=== PATIENT | male | born 1995 | race Caucasian/White ===

== ENCOUNTER → 2018-02-16 | Outpatient (CLI) | payer MEDICARE, MEDICAID | LOC: COL.RAD 02-14 09:45 | DX: R16.1 Splenomegaly, not elsewhere classified (principal); D72.819 Decreased white blood cell count, unspecified ==

== ENCOUNTER 2019-05-24 14:31 | Emergency (ER) | payer MEDICARE, MEDICAID ==
[~2019-05-24] VITALS: Ht 185.4 cm; Wt 81.8 kg
[2019-05-24 15:17] VITALS: TEMP 98
[2019-05-24 18:27] LABS: BASO # 0.1 (0.0-0.2); BASO % 0.9 % (0.0-2.0); EOS # 0.4 (0.0-0.7); EOS % 6.5 % (0-4.0); GRAN # 4.3 (1.4-6.5); GRAN % 65.8 % (42.2-75.2); HEMATOCRIT 50.4 % (42.0-52.0); LYMPH # 1.4 (1.2-3.4); LYMPH % 21.3 % (20.0-51.0); MEAN CELL VOLUME 94 fl (80.0-100.0); MEAN CORPUSCULAR HEMOGLOBIN 32 pg (27.0-31.0); MEAN CORPUSCULAR HGB CONC 34 g/dl (33.0-37.0); MEAN PLATELET VOLUME 8.7 fl (7.4-10.4); MONO # 0.4 (0.1-0.6); MONO % 5.3 % (1.7-9.3); PLATELET COUNT 225 K/mm3 (130-400); RED BLOOD COUNT 5.39 M/mm3 (4.20-5.60); REDCELL DISTRIBUTION WIDTH-CV 13.2 % (11.5-14.5)
[2019-05-24 18:32] LABS: ALBUMIN 4.5 gm/dL (3.5-5.0); BILIRUBIN,TOTAL 0.5 mg/dL (0.0-1.0); CALCIUM 9.7 mg/dL (8.4-10.2); CREATININE, serum 0.85 (0.66-1.25); TOTAL PROTEIN 7.2 gm/dL (6.4-8.2)
[2019-05-24 18:40] LABS: COLLECTION METHOD CLEAN CATCH
[2019-05-24 18:53] LABS: MUCOUS Present /lpf; PH 7 (5-8); SQUAMOUS EPITHELIAL None Seen /hpf; URINE APPEARANCE Clear; URINE BACTERIA Rare /hpf; URINE BILIRUBIN Negative (NEGATIVE); URINE BLOOD 1+ (NEGATIVE); URINE COLOR Yellow; URINE GLUCOSE Negative (NEGATIVE); URINE KETONE Negative (NEGATIVE); URINE LEUKOCYTE ESTERASE Negative (NEGATIVE); URINE NITRATE Negative (NEGATIVE); URINE PROTEIN(semi-quant) Negative (NEGATIVE); URINE RBC 0-2 /hpf; URINE UROBILINOGEN Negative (NEGATIVE)
[2019-05-24 19:03] VITALS: BP 126/82; PULSE 87
== END 2019-05-24 19:03 | disposition home or self-care (01) ==
LOC: COL.ER 14:31
PROVIDERS: Emergency Medicine
DX: G93.89 Other specified disorders of brain (principal); R93.5 Abnormal findings on diagnostic imaging of other abdominal regions, including retroperitoneum; G40.909 Epilepsy, unspecified, not intractable, without status epilepticus

== ENCOUNTER → 2019-05-24 | Outpatient (CLI) | payer MEDICARE, MEDICAID | LOC: COL.RAD 14:14 | DX: G40.109 Localization-related (focal) (partial) symptomatic epilepsy and epileptic syndromes with simple partial seizures, not intractable, without status epilepticus (principal); R93.0 Abnormal findings on diagnostic imaging of skull and head, not elsewhere classified; Z98.1 Arthrodesis status ==

== ENCOUNTER 2021-10-27 16:29 | Inpatient (IN) | payer MEDICARE, MEDICAID ==
[~2021-10-27] VITALS: Ht 175.3 cm; Wt 68.2 kg
[2021-10-27 16:49] LABS: BASO % 0.3 % (0.0-2.0); EOS % 0.2 % (0.0-4.0); GRAN # 4.1 K/mm3 (1.4-6.5); GRAN % 67.7 % (42.2-75.2); HEMOGLOBIN 12.4 g/dl (13.5-18.0); LYMPH # 1.3 K/mm3 (1.2-3.4); LYMPH % 22.1 % (20.0-51.0); MEAN CELL VOLUME 94 fl (80.0-100.0); MEAN CORPUSCULAR HEMOGLOBIN 32 pg (27-31); MEAN CORPUSCULAR HGB CONC 34 g/dl (33.0-37.0); MEAN PLATELET VOLUME 9.2 fl (7.4-10.4); MONO # 0.6 K/mm3 (0.1-0.6); MONO % 9.5 % (1.7-9.3); PLATELET COUNT 147 K/mm3 (130-400); RED BLOOD COUNT 3.83 M/mm3 (4.20-5.60); REDCELL DISTRIBUTION WIDTH-CV 12.9 % (11.5-14.5)
[2021-10-27 16:55] LABS: INR 1.5 (0.8-3.0); PROTHROMBIN TIME 16.3 SECONDS (9.7-12.8)
[2021-10-27 17:07] LABS: ALANINE AMINOTRANSFERASE 41 U/L (0-55); ALBUMIN 3.3 gm/dL (3.5-5.0); ALKALINE PHOSPHATASE 113 U/L (40-150); ANION GAP 10 mmol/L (7-16); BILIRUBIN,TOTAL 0.5 mg/dL (0.2-1.2); BLOOD UREA NITROGEN 28 mg/dL (9-21); CALCIUM 8.1 mg/dL (8.4-10.2); CARBON DIOXIDE 27 mmol/L (22-29); CHLORIDE 105 mmol/L (98-107); CREATININE, serum 0.88 mg/dL (0.72-1.25); GLUCOSE 86 mg/dL (70-99); LIPASE 11 U/L (8-78); POTASSIUM 4.3 mmol/L (3.5-4.5); SODIUM 142 mmol/L (136-145); TOTAL PROTEIN 5.2 gm/dL (6.2-8.1)
[2021-10-27 17:30] LABS: TROPONIN-I < 0.010 ng/mL (0.00-0.033)
[2021-10-27 17:49] LABS: AST,SGOT 33 U/L (5-34)
[2021-10-27 21:00] VITALS: BP 108/58; PULSE 81; TEMP 98.2
[2021-10-27] MEDS ORDERED: ONFI 20MG PO (21:45)
[2021-10-27] MEDS ORDERED: INDERAL80 MG PO (21:46)
[2021-10-27] MEDS ORDERED: MELATONIN5 M1 PO (21:52)
[2021-10-27] MEDS ORDERED: REMERON30 MG PO (21:53)
[2021-10-27] MEDS ORDERED: KEPPRA1000 MG (21:53)
[2021-10-27] MEDS ORDERED: FYCOMPA4 MG PO (21:56)
[2021-10-27] MEDS ORDERED: BANZEL200 MG PO (21:56)
[2021-10-27 23:36] VITALS: BP 108/62; PULSE 88; TEMP 98.1
--- NOTE | 2021-10-28 00:24 | NUR ---
PT ARRIVES TO MEDICAL FLOOR ROOM 307 VIA BED BY ED STAFF AND REQUIRED 2ASSIST TO TRANSPORT TO BED, PT A/OX2, DISORIENTED AND PLEASANTLY CONFUSED. PT UNABLE TO STATE WHY HE IS IN HOSPITAL OR WHAT COVID IS, PT ABLE TO STATE NAME, AND SIMPLE WANTS LIKE BATHROOM AND WATER. 02 4L NC, PT UNDERPANTS SOILED WITH DARK LOOSE STOOL, FACE HAS DRIED UP BLOOD ON LEFT SIDE, 1 IV NOTED IN LAC WHICH IS INFUSING N/S AT 125CC/HR TO. THIS NURSE CALLED PTS MOTHER JOSE AND RECEIVED REPORT OF PTS BASELINE, MED REC WHICH SHE PROVIDED NIGHT TIME MEDS AND REQUESTED TO CALL PT PHARMACY FOR DAY TIME MEDS, THIS NURSE ACKNOWLEDGES AND WILL RELAY TO ONCOMING SHIFT PHARMACY IS CLOSED. PT HAS DAIGNOSES OF EPILEPSY, SEIZURE PRECAUTIONS IN PLACE, SUCTION AT BEDSIDE. PT REQUIRES ASSISTANCE OF 1 AND COULD AMBULATE WITH GAITBELT TO BEDSIDE COMMODE. ASSESMENT COMPLETE, PT UNABLE TO BE ORIENTED TO FLOOR AND HOSPITAL POLICY, ALL NEEDS MET AT THIS TIME. BED LOW, BED ALARM ON, MONITOR PLACED IN PT'S ROOM.
[2021-10-28 03:26] VITALS: BP 92/56; PULSE 86; TEMP 97.9
--- NOTE | 2021-10-28 05:41 | NUR ---
PT REMAINS 4L NC, AFEBRILE, SYSTOLIC NOTED TO BE SOFT THIS MORNING, PT ASYMPTOMATIC, SEIZURE PRECAUTIONS REMAIN IN PLACE. ALL NEEDS MET THIS SHIFT. STOOL OCCULT REMAINS UNCOLLECTED. NURSE WILL RELAY TO ONCOMING SHIFT.
[2021-10-28 08:28] VITALS: BP 90/40; PULSE 93; TEMP 98.3
--- NOTE | 2021-10-28 08:41 | NUR ---
CANE SPLICER let this RN know pt.'s BP is low this AM. See vitals. MARY Young notified, Hannah requesting for this RN to assess if pt. is dizzy/light headed. MARY Young reports if pt. is asymptomatic to hold off on IV for this time.
--- NOTE | 2021-10-28 09:15 | NUR ---
Pt. progressing w/ plan of care. Pt. able to follow commands such as raise his arms and legs, and squeeze hands. Pt. not talkative, pt. has not spoken except for yes or no. Pt. able to say yes he is in the hospital. Pt. was drowsy but now more alert, pt. has a congestive cough. Pt. expectorating sputum into bucket. Pt. is on 5L O2 NC. Pt. nods yes to feeling nauseated. Pt. denies dizziness. Pt. denies needing to void at this time. Pt. remains NPO at this time. Assessment complete and IV AM meds given. Plan to look at nausea meds for the patient. Bed alarm on, call light in reach.
--- NOTE | 2021-10-28 11:05 | NUR ---
The patient is COVID positive and has a history of autism and epilepsy. SW contacted the patient's mother, Soniya Jeffery (ph#[phone]), to discuss discharge plan. The patient lives in [place] with his parents: Soniya and Miguel A Palmer. Soniya reports that the patient needs some assistance with getting in and out of the bath and bathing and that he does not have any DME. She reports that she assists him. The patient's PCP is Dr. Elias Frey and he receives his medications from [facility]. Soniya reports no difficulties obtaining her meds. The patient does not have a DPOA-HC, but Soniya reports that she is the patient's Guardian. She states that she has the document in her purse. SW asked that she bring a copy up to the hospital. Soniya reports that the plan is for the patient to return back home with her and his father upon discharge. He is currently on 5 liters of oxygen. SW to continue to monitor. *Discharge plan: home with parents*
[2021-10-28 13:02] VITALS: BP 98/45; PULSE 101; TEMP 100.3
[2021-10-28 13:38] LABS: HEMOGLOBIN 10.7 g/dl (13.5-18.0); MEAN CELL VOLUME 95 fl (80.0-100.0); MEAN CORPUSCULAR HEMOGLOBIN 33 pg (27-31); MEAN CORPUSCULAR HGB CONC 35 g/dl (33.0-37.0); MEAN PLATELET VOLUME 9.3 fl (7.4-10.4); PLATELET COUNT 136 K/mm3 (130-400); RED BLOOD COUNT 3.26 M/mm3 (4.20-5.60); REDCELL DISTRIBUTION WIDTH-CV 13.1 % (11.5-14.5)
[2021-10-28 13:39] LABS: HEMATOCRIT 30.8 % (42.0-52.0)
[2021-10-28 13:45] LABS: CALCIUM 7.6 mg/dL (8.4-10.2); CREATININE, serum 0.72 mg/dL (0.72-1.25); POTASSIUM 3.9 mmol/L (3.5-4.5)
--- NOTE | 2021-10-28 14:11 | NUR ---
Dr. Dickerson notified pt.'s new temperature. New order for tylenol obtained. Dr. Dickerson reports pt. can take PO tylenol even though he is NPO. Incontinent care provided. Yellow urine, a large amount noted on fay pad. Needs addressed, call light and belongings in reach.
--- NOTE | 2021-10-28 15:09 | NUR ---
This RN unsure if GI consult has been complete, Dr. Farris, consumer studies professor physician from GI notified. Dr. Farris reports she will call Dr. Monroe to see if the patient has been seen.
--- NOTE | 2021-10-28 15:14 | NUR ---
It was brought to this RN's attention by pharmacist Jeane the hospital does not supply pt.'s two seizure medications- Fycompa and Banzel. This RN called pt.'s mother Soniya to request if she could bring them in. Pt.'s mother Soniya reports she has no transportation at this time. This RN inquired if pt.'s mother Soniya had any way of getting the medications to the hospital so pt. could take them. Soniya reports she may be able to have a family member assist in this proccess, Soniya reports she will let nursing staff know.
[2021-10-28 15:25] VITALS: TEMP 98.2
[2021-10-28 16:34] VITALS: BP 103/64; PULSE 96; TEMP 98.7
[2021-10-28] MEDS ORDERED: ONFI 10MG PO (18:13)
[2021-10-28] MEDS ORDERED: VISTARIL 2525 MG/CAP PO (18:21)
[2021-10-28] MEDS ORDERED: ABILIFY 15MG TA15 MG PO (18:23)
[2021-10-28] MEDS ORDERED: KLONOPIN 0.5MG0.5 MG PO (18:25)
[2021-10-28] MEDS ORDERED: LEXAPRO 10MG10 MG PO (18:26)
[2021-10-28] MEDS ORDERED: BUSPAR10 MG PO (18:26)
[2021-10-28] MEDS ORDERED: MINIPRESS 1M1 MG/CAP PO (18:27)
--- NOTE | 2021-10-28 18:31 | NUR ---
[facility] pharmacy called and med list updated. Antonina Chowdhury NP notified via telephone.
[2021-10-28 19:36] VITALS: BP 93/44; PULSE 87; TEMP 99.1
[2021-10-29] VITALS (7 sets, daily range): BP systolic 82–120; BP diastolic 40–64; PULSE 56–85; TEMP 97.3–98.7
--- NOTE | 2021-10-29 01:05 | NUR ---
PT CONTINUES WITH SOFT BP'S THUS FAR, BP TRENDING IN SYNC. NO INTERVENTIONS AT THIS TIME.
--- NOTE | 2021-10-29 06:03 | NUR ---
PT HAD UNEVENTFUL NIGHT, NO SEIZURE ACTIVITY THROUGH OUT NIGHT, THIS NURSE SPOKE TO MOTHER AND PT TYPICALLY ENDURES ABSENCE SEIZURES. 02 WEANED DOWN TO 1L NC PT SATURATING OVER 95 PERCENT. PT INCONTINENT OF URINE OVERNIGHT. PT CLEANED, CHANGED AND IS CURRENTLY DRY. ALL MEDICATIONS ADMINISTERED ORDERED. BED LOW. BED ALARM ON. PT VISIBLE TO NURSE DESK.
--- NOTE | 2021-10-29 08:17 | NUR ---
Pt. progressing w/ plan of care. Pt. reporting a cough this AM and reports it is bothering him. Pt. reports a sore throat. Pt. able to tell this RN month and year but does not know his location. Pt. reoriented. Pt. sitting upright in bed eating jello. Pt. requesting his nintendo. This RN gave pt. crayons and coloring sheets to do. Plan for AM meds and PRN tylenol for sore throat. Bed alarm on.
[2021-10-29 09:10] LABS: HEMOGLOBIN 12.5 g/dl (13.5-18.0); MEAN CELL VOLUME 93 fl (80.0-100.0); MEAN CORPUSCULAR HEMOGLOBIN 33 pg (27-31); MEAN CORPUSCULAR HGB CONC 35 g/dl (33.0-37.0); MEAN PLATELET VOLUME 9.6 fl (7.4-10.4); PLATELET COUNT 86 K/mm3 (130-400); RED BLOOD COUNT 3.82 M/mm3 (4.20-5.60)
[2021-10-29 09:17] LABS: POTASSIUM 4.4 mmol/L (3.5-4.5)
[2021-10-29 09:32] LABS: C-REACTIVE PROTEIN 3.38 mg/dL (0.00-0.50); CALCIUM 8.5 mg/dL (8.4-10.2); CREATININE, serum 0.66 mg/dL (0.72-1.25)
[2021-10-29 09:35] LABS: HEMATOCRIT 35.5 % (42.0-52.0)
--- NOTE | 2021-10-29 11:27 | NUR ---
Platelets lower than pt.'s baseline this AM. Pt. also had a dark tarry stool. Stool occult sent. Pharmacist Ginna, working w/ Dr. Spencer notified. No new orders at this time, Ginna [facility] requesting this RN to let her know if occult comes back positive. Pt. resting in bed, needs addressed, call light and belongings in reach.
[2021-10-30 04:39] VITALS: BP 97/53; PULSE 69; TEMP 97.5
--- NOTE | 2021-10-30 05:13 | NUR ---
PT REMAINS AFEBRILE, DENIES N.V.D, NO STOOLS OVERNIGHT, NO SEIZURE ACTIVITY OBSEREVED OVER NIGHT, PT REMAINS AT HIS COGNITIVE BASELINE. 02 1L SATURATING OVER 95 PERCENT, WHEN PT ON RA PT SATURATES 88-90. ALL MEDICATIONS ADMINSITERED ORDERED. PT CLEANED AND DRY. BED LINENS CHANGED. BED LOW. BED ALARM ON. PT VISIBLE TO NURSES STATION. SEIZURE PRECAUTIONS REMAIN IN PLACE.
[2021-10-30 05:49] LABS: MEAN CELL VOLUME 96 fl (80.0-100.0); MEAN CORPUSCULAR HGB CONC 34 g/dl (33.0-37.0); MEAN PLATELET VOLUME 9.1 fl (7.4-10.4); PLATELET COUNT 142 K/mm3 (130-400); RED BLOOD COUNT 3.21 M/mm3 (4.20-5.60); REDCELL DISTRIBUTION WIDTH-CV 12.8 % (11.5-14.5)
[2021-10-30 06:15] LABS: HEMATOCRIT 30.8 % (42.0-52.0); HEMOGLOBIN 10.5 g/dl (13.5-18.0); MEAN CORPUSCULAR HEMOGLOBIN 33 pg (27-31)
[2021-10-30 08:52] VITALS: BP 114/57; PULSE 87; TEMP 97.8
--- NOTE | 2021-10-30 09:49 | NUR ---
PT HAS A WET COUGH, HE DID GET UP TO HAVE A BOWEL MOVEMENT, THE STOOL IS A LIQUID DARK COLORED STOOL. NO JOSÉ MANUEL RED BLOOD. THE PATIENT DID GET UP TO BEDSIDE COMMODE, HE WAS WEAK AND HAD A BALANCE ISSUE. HE STATES THAT THE IV PROTONIX STINGS, HOWEVER WITH A FLUSH DENIES ANY PAIN, IV KEPPRA GIVEN, AND NO COMPLAINTS WITH THAT ADMINISTRATION. THE PATIENT DOES ASK QUESTIONS LIKE "WHAT ARE THESE PILLS FOR?" AND "WHERE IS THE REMOTE?" HE IS ALERT AND ORIENTED X4. ASSESSMENT COMPLETED. LUNG SOUNDS ARE CLEAR DESPITE WET COUGH. NO OTHER CONCERNS AT THIS TIME. WILL CONTINUE TO MONITOR THIS PATIENT.
[2021-10-30 10:46] VITALS: BP 110/64; PULSE 94; TEMP 98.1
[2021-10-30] MEDS ORDERED: ROBITUSSIN DM 105 ML PO (10:50)
[2021-10-30] MEDS ORDERED: TESSALON P100 MG/CAP PO (10:51)
--- NOTE | 2021-10-30 12:20 | NUR ---
YG spoke with the patients mother Soniya [phone] who states due to her "having" covid she cannot transport this patient. Soniya say's she has an appointment tomorrow to get tested. Says the whole family has covid. When asked how this patient normally gets to appointment she say's they utilize the patient's medicaid transportation. Will attempt to contact patient's insurance to assist with transportation.
--- NOTE | 2021-10-30 16:41 | NUR ---
best worker contacts the patient's mother stating that due to the patient's covid + status, he would not be able to transfer through his insurance and that a family member will need to assist. Soniya states that her newphew has their care and none of them can drive. Asked if she could contact her nephew to gain access to their care. Patient's father calls to the unit advising he is on his way to pick the patient up.
--- NOTE | 2021-10-30 16:58 | NUR ---
Due to concerns of family's unwillingness to bring the patient his speciality medications resulting in the patient having a seizure during this stay and lack of willingness of provide transportation home, APS report filed. [id number]
== END 2021-10-30 17:00 | disposition home or self-care (01) | DRG 368 ==
LOC: COL.ER 16:29 → MEDICAL 18:32
PROVIDERS: Emergency Medicine; Internal Medicine; ADMIT Student in an Organized Health Care Education/Training Program
DX: K22.6 Gastro-esophageal laceration-hemorrhage syndrome (principal); U07.1 COVID-19; J96.01 Acute respiratory failure with hypoxia; F84.0 Autistic disorder; D62 Acute posthemorrhagic anemia; K92.1 Melena; G40.909 Epilepsy, unspecified, not intractable, without status epilepticus; G31.84 Mild cognitive impairment of uncertain or unknown etiology; F32.A Depression, unspecified; F41.9 Anxiety disorder, unspecified
CPT/HCPCS: OP; 99223-AI; 99232-AI; 99233-AI; 99239; C9113; J0248; J1100; J1953; J2405; J2543; J7030; J7050; J7120